=== PATIENT | female | born 1960 | race Caucasian/White ===

== ENCOUNTER 2016-10-09 06:41 | Day surgery (SDC) | payer BC ==
[~2016-10-09] VITALS: Ht 165.1 cm; Wt 55.2 kg
== END 2016-10-09 09:20 | disposition home or self-care (01) ==
LOC: RAD.S 06:41 → EDSTATUS 08:00 → RAD.S 08:00
PROC: 07DR3ZX Extraction of Iliac Bone Marrow, Percutaneous Approach, Diagnostic (ICD-10-PCS; principal; 2016-10-09)
DX: D75.89 Other specified diseases of blood and blood-forming organs (principal); M51.26 Other intervertebral disc displacement, lumbar region; I10 Essential (primary) hypertension; F32.9 Major depressive disorder, single episode, unspecified; M19.90 Unspecified osteoarthritis, unspecified site; M81.0 Age-related osteoporosis without current pathological fracture; F41.9 Anxiety disorder, unspecified; E55.9 Vitamin D deficiency, unspecified; Z87.440 Personal history of urinary (tract) infections; Z87.19 Personal history of other diseases of the digestive system; Z90.710 Acquired absence of both cervix and uterus; Z87.891 Personal history of nicotine dependence; Z98.890 Other specified postprocedural states